=== PATIENT | male | born 1940 | race African-American/Black ===

== ENCOUNTER 2017-02-28 17:04 | Emergency (ER) | payer OTHER ==
[~2017-02-28] VITALS: Ht 175.3 cm; Wt 67.1 kg
--- NOTE | ~2017-02-28 | EKG ---
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
[2017-02-28] MEDS ORDERED: ZYRTEC10 M5 PO (17:26)
[2017-02-28] MEDS ORDERED: HYDROXYCHLOROQ200 M1 PO (17:26)
[2017-02-28] MEDS ORDERED: ASPIR 8181 M1 PO (17:26)
[2017-02-28] MEDS ORDERED: PATANOL5 ML OPHTHALMIC (17:27)
[2017-02-28] MEDS ORDERED: OMEPRAZOLE 20 M20 M1 PO (17:27)
[2017-02-28] MEDS ORDERED: VESICARE 5 MG TA5 M1 PO (17:27)
[2017-02-28 17:29] LABS: ABSOLUTE NEUTROPHILS 2.4 thou/uL (1.4-8.2); BASOPHILS 0.6 % (0.0-2.0); EOSINOPHILS 2.3 % (0.0-3.0); HEMATOCRIT 38.7 % (42.0-52.0); HEMOGLOBIN 12.8 gm/dL (14.0-18.0); LYMPHOCYTES 28.3 % (24.0-44.0); MCH 30.6 pg (26.0-34.0); MCV 92.8 fL (80.0-100.0); MONOCYTES 10.2 % (1.0-8.0); PLATELET COUNT 242 thou/uL (150-400); POLYS 58.6 % (36.0-66.0); RBC 4.17 mil/uL (4.50-6.00); RDW 13.2 % (10.5-14.5); WBC 4.1 thou/uL (4.0-11.0)
[2017-02-28 17:30] LABS: MANUAL DIFF NO
[2017-02-28 17:39] LABS: ANION GAP 7 mmol/L (7-16); BUN 14 mg/dL (7-18); CALCIUM 8.4 mg/dL (8.5-10.1); CHLORIDE 103 mmol/L (98-107); CO2 29 mmol/L (21-32); GLUCOSE 148 mg/dL (74-106); POTASSIUM 3.9 mmol/L (3.5-5.1); SODIUM 139 mmol/L (136-145)
[2017-02-28 17:50] LABS: ALBUMIN 3.7 g/dL (3.4-5.0); ALKALINE PHOSPHATASE 52 U/L (46-116); NT-PRO BRAIN NAT PEPTIDE 80 pg/mL (<300); SGOT 23 U/L (15-37); SGPT 26 U/L (30-65); TOTAL BILIRUBIN 0.5 mg/dL (<0.1-1.0); TOTAL PROTEIN 7.3 g/dL (6.4-8.2); TROPONIN-I < 0.04 ng/mL (<0.04-0.07)
[2017-02-28 20:07] VITALS: BP 150/88
== END 2017-02-28 20:08 | disposition home or self-care (01) ==
LOC: ER 17:04
PROVIDERS: Physician Assistant
DX: R07.89 Other chest pain (principal); Z79.82 Long term (current) use of aspirin

== ENCOUNTER → 2017-06-08 | Outpatient (CLI) | payer OTHER ==
[~2017-06-08] MED LIST: ASPIR 8181 M1 PO; HYDROXYCHLOROQ200 M1 PO; OMEPRAZOLE 20 M20 M1 PO; PATANOL5 ML OPHTHALMIC; VESICARE 5 MG TA5 M1 PO; ZYRTEC10 M5 PO
== END ==
LOC: RAD 09:07
DX: R05 Cough (principal)

== ENCOUNTER → 2017-07-12 | Outpatient (CLI) | payer OTHER | LOC: RAD 09:51 | DX: J18.1 Lobar pneumonia, unspecified organism (principal) ==

== ENCOUNTER → 2017-07-25 | Outpatient (CLI) | payer OTHER | LOC: RAD 17:20 | DX: J18.1 Lobar pneumonia, unspecified organism (principal); J90 Pleural effusion, not elsewhere classified; Z98.890 Other specified postprocedural states ==